=== PATIENT | female | born 1940 | race Caucasian/White ===

== ENCOUNTER → 2023-10-26 | Outpatient (CLI) | payer OTHER ==
[~2023-10-26] MED LIST: ALBUTEROL MDI; AMLO5 PO; CHOL10002 PO; FISH1000 PO; LOSHYD PO; RANI150 PO; SERT100 PO; SIMV10 PO; TIOT18 INH
== END ==
LOC: LAB SHORT 07:25 → LAB 07:25
DX: E87.6 Hypokalemia (principal)
CPT/HCPCS: 36415; 84132